=== PATIENT | female | born 1940 | race Caucasian/White ===

== ENCOUNTER 2016-03-23 12:57 | Observation (INO) | payer OTHER ==
[~2016-03-23] VITALS: Ht 160 cm; Wt 86.8 kg
--- NOTE | 2016-03-23 14:10 | DIAGNOSTIC IMAGING REPORT ---
PROCEDURE: XR CHEST 1 VIEW INDICATION: CHEST PAIN TECHNIQUE: Portable AP view 01:52 p.m. COMPARISON: None. FINDINGS: Poor inspiration but lungs are clear. Heart and mediastinum are normal. Thorax is normal. IMPRESSION: 1. Negative chest.
--- NOTE | 2016-03-23 15:07 | ED NURSING NOTES ---
Clinical Report - Nurses [facility] [address] [place] [address] 03/23/2016 13:00 Patient: BHUMI ROLLINS TRIAGE Triage time 13:15. Acuity: LEVEL 2. Chief Complaint: DIZZINESS and (syncopal episode, approx 30 seconds). --13:23 Helen Vázquez R.N. 13:14 03/23/16. BP: 129/74. HR: 77. RR: 18. O2 saturation: 95%. Temp: 97.8 F. Pain level now: 010. --13:23 Helen Vázquez R.N. Weight: 84.8 kg stated. Height/Length: 63 inches Per Patient. BMI: 33.1. --13:14 Ava Sheridan R.N. Medications Celecoxib 200 mg daily. --13:18 Helen Vázquez R.N. Fosinopril 40 mg daily. --13:18 Helen Vázquez R.N. Furosemide 20 mg bid. --13:18 Helen Vázquez R.N. Amlodipine 10 mg daily. --13:18 Helen Vázquez R.N. Atorvastatin 20 mg nightly. --13:18 Helen Vázquez R.N. Verapimil 120 mg daily. --13:18 Helen Vázquez R.N. Flecainide Acetate Oral. --13:18 Helen Vázquez R.N. Ranitidine 300 mg daily. --13:19 Helen Vázquez R.N. Imipramine 20 mg daily. --13:19 Helen Vázquez R.N. Lansoprazole 60 mg daily. --13:19 Helen Vázquez R.N. Cyclobenzaprine 5 mg prn. --13:19 Helen Vázquez R.N. Spironolactone 50 mg daily. --13:19 Helen Vázquez R.N. Gabapentin 300 mg TID. --13:19 Stone, Helen, R.N. Fovent bid prn. --13:19 Helen Vázquez R.N. Aspirin 81 mg daily. --13:19 Helen Vázquez R.N. Vtamin D3 2000 iu daily. --13:20 Helen Vázquez R.N. Magnesium 300 mg daily. --13:20 Helen Vázquez R.N. Gucosamine 1500 mg daily. --13:20 Helen Vázquez R.N. Allergies No Known Drug Allergy. --13:17 Helen Vázquez R.N. History Arrived by private vehicle. Historian: patient. Accompanied by family. This started 1100 AM. Onset. (chest "heaviness"). She has had trouble walking and weakness and experienced syncope. Treatment FIELD ASSOCIATE: None. SOCIAL HX: Never smoker. Alcohol use; consumes one liquor drink. No infectious disease exposure. NUTRITIONAL RISK ASSESSMENT: The nutritional risk assessment revealed no deficiencies. FUNCTIONAL ASSESSMENT: Functional assessment: no impairments noted. LEARNING NEEDS ASSESSMENT: The learning needs assessment revealed no barriers. FALL RISK ASSESSMENT: Fall risk assessment completed. Risk factors identified include postural hypotension and patient age greater than 65 years and history of fall and fainting. Fall interventions initiated. Patient placed on stretcher. Side rails up x2. Brakes on Bed in low position. Patient visible from nurses' station. Call light in reach of patient and family. Instructed not to get up without assistance. SKIN INTEGRITY ASSESSMENT: Skin integrity risk assessment completed. No skin integrity risk identified. --13:23 Helen Vázquez R.N. PROBLEMS: Hypercholesterolemia. Hypertension . --13:20 Helen Vázquez R.N. Interventions ID band on patient. --13:23 Helen Vázquez R.N. PHYSICAL ASSESSMENT 13:17 03/23/16. To room via wheelchair. GENERAL / NEURO / PSYCH: Oriented X 4. Alert. Speech within normal limits. HEENT: No facial asymmetry noted. Pupils equal, round and reactive to light. RESPIRATORY: Breath sounds within normal limits. Respirations not labored. CVS: Normal sinus rhythm noted. Capillary refill less than 2 seconds. GI / : Abdomen soft and nontender. SKIN: Skin is warm and dry. --13:32 Ava Sheridan R.N. NURSING PROGRESS NOTES 13:15 03/23/16. Cardiac rhythm: normal sinus rhythm. The initial plan of care for this patient includes an assessment with efforts to address the presence of pain; impairment of the cardiovascular system. This plan of care was discussed with the patient and family. monitor and storage bin tender, pulse oximeter and NIBP monitor placed on patient; monitoring analyst- Lead II; monitor alarms on. EKG time: (13:Mar 23 2016). EKG was performed by a tech and shown to the ED physician. Patient gowned. Head of bed elevated 45 degrees. Reassurance given. Patient identifiers checked. Call light placed in reach. Side rails up x 2. Bed placed in lowest position. Brakes of bed on. Patient ready for evaluation. --13:31 Ava Sheridan R.N. 13:20 03/23/2016 Site #1 started via IV in the left antecubital space with an 20g angiocath, with aseptic technique and good blood return; one attempt. Blood drawn: rainbow set. Labeled in the presence of the patient and sent to the lab. Saline lock flushed with 10 mL saline. --13:30 Ava Sheridan R.N. 13:43 03/23/16. ( MED LIST REVIEWED WITH PATIENT. SHE STOPPED TAKING AMLODIPINE, AND CELEBREX WITHOUT TELLING HER MD QUITE A FEW MONTHS AGO. FLEXERIL AND FLOVENT ARE PRN TODAY , PT WAS GOING TO GI MD TODAY AND SHE PASSED OUT IN THE FRONT DOOR OF OFFICE. SHE HAS HAD SOME MILD CHEST HEAVINESS SINCE THEN BUT DENIED ANY PRECIPITATING SYMPTOMS. SHE SAID IT HAPPENED VERY FAST. SHE WAS UP WALKING ONE MINUTE AND THEN WOKE ON THE FLOOR.). --13:43 Ava Sheridan R.N. 13:44 03/23/16. ( PT STATES THEY DID ORTHOSTATIC VITALS AND THERE WAS NO FLUCTUATION IN HER HEART RATE OR BLOOD PRESSURE). --13:44 Ava Sheridan R.N. 13:47 03/23/2016 Aspirin PO Tablets 243 mg given. Allergies verified and confirmed 5 rights. --13:47 Ava Sheridan R.N. 13:52 03/23/16. Finger stick glucose: 132; performed by nurse; result shown to the ED physician. --13:52 Ava Sheridan R.N. 13:54 03/23/16. Portable chest x-ray performed and shown to the ED physician. --13:54 Ava Sheridan R.N. ( MD in room to examine patient). --14:13 Ava Sheridan R.N. 15:09 03/23/16. BP: 98/60 (regular adult cuff) taken on the right arm, via an automated monitor, while lying. HR: 69. RR: 17 (regular and normal). --15:11 Nilsa Karin 15:13 03/23/16. BP: 100/68 (regular adult cuff) taken on the right arm, via an automated monitor, while sitting. HR: 75 (regular). RR: 18 (regular and normal). --15:14 Nilsa Karin 15:18 03/23/16. BP: 85/57 (regular adult cuff) taken on the right arm, via an automated monitor, while standing. RN notified. HR: 63 (regular and normal rate). --15:18 Enid Asha 15:59 03/23/16. The patient is resting quietly. GENERAL / NEURO / PSYCH: Patient is calm and cooperative. Alert. Oriented X 4. ( waiting for inpatient bed. no change in condition. voices no complaints). --15:59 Ava Sheridan R.N. DISPOSITION / DISCHARGE 17:25 03/23/2016 Site #[address] upon admission; patent; flushes easily. --17:25 Ava Sheridan R.N. 17:26 03/23/16. Cardiac rhythm: normal sinus rhythm. Condition at departure: improved and stable. The goals identified in the patient's plan of care were met. Disposition: observation in Acute Care. Transported via stretcher. Report was given to a nurse via a phone call. Report included patient's care, treatment, medications, reviewed medication reconcilliation, and condition (including any recent changes or anticipated changes). All questions were answered. (to TAMMI Pringle). Bed obtained and ready (210B). FALL RISK ASSESSMENT: Fall risk assessment completed. No fall risk identified. --17:26 Ava Sheridan R.N. 17:26 03/23/16. BP: 126/68. HR: 83. RR: 16. O2 saturation: 100%. Temp: 98.5 F. Pain level now 0/10. --17:26 Ava Sheridan R.N. Locked/Released at 03/23/2016 17:26 by Ava Sheridan R.N.
--- NOTE | 2016-03-23 15:07 | ED CLINICAL REPORT ---
Clinical Report - Physicians/Mid Levels [facility] [address] [place] [address] 03/23/2016 13:00 Patient: BHUMI ROLLINS Time Seen: 13:41. Arrived- By private vehicle. Historian- patient. HISTORY OF PRESENT ILLNESS The patient has recovered. Chief Complaint: SINGLE SYNCOPAL EPISODE and Chest Disomfort. This occurred today about 3 hours ago. It was gradual in onset and has been waxing/waning. Event was witnessed. At time of event, she was standing. At time of event, she had just stood up (pt had just gotten out of her car to go into her gastroenterologists office when she had the episode; was taken into the clinic and told her BP was low (approx 90 systolic) and her HR was in the 110's). The patient had preceding symptoms of light-headedness. No preceding symptoms of chest pain or abdominal pain. The patient lost consciousness completely (for 30 sec). No seizure activity or incontinence. Had a single episode of syncope (30 sec). The episode was brief and lasted seconds. No injuries noted. She currently has weakness. No nausea currently. No headache currently. (She has been somewhat confused today - "feels slow"). Similar symptoms previously: Recent medical care: The patient was seen recently in a clinic. REVIEW OF SYSTEMS No headache, chest pain, palpitations, abdominal pain or vomiting. No diarrhea, black stools, bloody stools, fever or sore throat. No difficulty with urination, skin rash or cough. The patient has had dizziness and generalized weakness. All systems otherwise negative, except as recorded above. PAST HISTORY See nurses notes. Hypertension. ( PCP: [facility]'s group Gastroenterology: [facility]). History of dysrhythmia. (unsure type). Asthma. Hyperlipidemia. Gastroesophageal reflux. Arthritis. 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 Surgeries: Endoscopy. Medications: Gucosamine 1500 mg daily. Magnesium 300 mg daily. Vtamin D3 2000 iu daily. Aspirin 81 mg daily. Fovent bid prn. Gabapentin 300 mg TID. Spironolactone 50 mg daily. Cyclobenzaprine 5 mg prn. Lansoprazole 60 mg daily. Imipramine 20 mg daily. Ranitidine 300 mg daily. Flecainide Acetate Oral. Verapimil 120 mg daily. Atorvastatin 20 mg nightly. Amlodipine 10 mg daily. Furosemide 20 mg bid. Fosinopril 40 mg daily. Celecoxib 200 mg daily. Allergies: No Known Drug Allergy. SOCIAL HISTORY Never smoker. Occasional alcohol use. No drug use. Is a local resident. ADDITIONAL NOTES The nursing notes have been reviewed. PHYSICAL EXAM Vital Signs: 03/23/2016 13:14 BP: 129/74. HR: 77. RR: 18. O2 saturation: 95%. Temp: 97.8 F. Pain level now: 0/10. Appearance: Alert. Patient in mild distress. Eyes: Pupils equal, round and reactive to light. No nystagmus. Extraocular movements normal. ENT: Normal ENT inspection. Moist mucous membranes. Pharynx normal. Neck: Normal inspection. Neck supple. No meningeal signs or carotid bruit. CVS: Heart sounds normal. Pulses normal. Respiratory: No respiratory distress. Breath sounds normal. Abdomen: Soft and nontender. Back: Normal inspection. Skin: Skin warm and dry. Normal skin color. Normal skin turgor. Extremities: Extremities exhibit normal ROM. No calf tenderness. Neuro: Alert. Oriented X 3. Speech normal. Cranial nerves normal (as tested). No cerebellar findings. No motor deficit. No sensory deficit. Reflexes normal. Reflex exam: right biceps 1+, left biceps 1+, right patellar 1+, left patellar 1+, right Achilles 0 and left Achilles 0. LABS, X-RAYS, AND EKG EKG: EKG time: (13:31). Normal sinus rhythm. Rate: 75. First-degree atrioventricular block. Normal QRS complex. Normal axis. Non-specific ST segment / T wave abnormalities. The study has been interpreted contemporaneously by me. The EKG appears to be a good tracing. Rhythm Strip #1: Normal sinus rhythm. Regular rhythm. Narrow QRS complexes. No ectopy. Laboratory Tests: CBC w Diff: (HOLLY: 03/23/2016 13:20) ( MsgRcvd 03/23/2016 14:10) Final results Test Result Flag Units (Reference) WHITE BLOOD COUNT 11.7 H K/uL (4.5-11.5) RED BLOOD COUNT 4.78 M/uL (4.00-5.20) HEMOGLOBIN 12.6 gm/dL (12.0-16.0) HEMATOCRIT 39.7 % (36.0-46.0) MEAN CELL VOLUME 83 fL (80-100) MEAN CORPUSCULAR HGB 26 pg (26-34) MEAN CORPUSCULAR HGB CONC 32 g/dL (31-37) RED CELL DISTRIBUTION WIDTH 19.6 H % (11.6-14.8) PLATELET COUNT 238 K/uL (150-400) NEUTROPHIL % 77.2 H % (50-75) LYMPH % 13.6 L % (25-40) MONO % 8.0 % (3-14) EOSINOPHIL % 0.9 % (0-4) BASOPHIL % 0.3 % (0-2) PT with INR: (HOLLY: 03/23/2016 13:20) ( MsgRcvd 03/23/2016 14:48) Final results Test Result Flag Units (Reference) INR 0.9 (0.8-1.2) Low Intensity Therapy: INR 1.5-2.0 PT range 18.5-23.1Mod.Intensity Therapy: INR 2.0-3.0 PT range 23.1-31.5High Intensity Therapy: INR 2.5-3.5 PT range 27.4-35.5High Intensity Therapy 2: INR 3.0-4.0 PT range 31.5-39.3 D-DIMER QUANTITATIVE 0.45 ug/mLFEU (0.27-0.52) The primary value of this quantitative assay relates toits negative predictive value (i.e. exclusion) of pulmonaryembolism/deep vein thrombosis/DIC.Elevated levels of d-dimer may also occur with:, age, cancer, inflammation, liver disease,post-op, infection, hematoma, coronary disease, peripheralarteriopathy, bleeding disorders and thrombolytic treatment.Results should be correlated with other clinical andradiological data.Testing Methodology: Latex Immunoassay [id number]: (HOLLY: 03/23/2016 20:00) ( [facility] 03/23/2016 20:16) Final results Test Result Flag Units (Reference) POTASSIUM 5.6 H mmol/L (3.5-5.1) Troponin-I: (HOLLY: 03/23/2016 20:00) ( [facility] 03/23/2016 20:38) Final results Test Result Flag Units (Reference) TROPONIN I <0.05 L ng/mL (0.00-1.5) TROPONIN REFERENCE RANGE:<0.1 NEGATIVE0.1-1.5 INDETERMINANT>1.5 POSITIVE BNP: (HOLLY: 03/23/2016 13:20) ( [facility] 03/23/2016 14:31) Final results Test Result Flag Units (Reference) B-TYPE NATRIURETIC PEPTIDE 27.7 pg/ml (5-100) CHEM 13 PANEL: (HOLLY: 03/23/2016 13:20) ( [facility] 03/23/2016 15:00) Final results Test Result Flag Units (Reference) GLUCOSE 143 H mg/dL (70-110) BUN 41 H mg/dL (7-18) CREATININE 1.5 H mg/dL (0.6-1.3) Estimated GFR 35.79 mL/min Estimated GFR- 43.38 mL/min Note: Persistent reduction over 3 months in eGFR<60 mL/min/1.73 m2 defines CKD. Patients with eGFR values>=60 mL/min/1.73 m2 may also have CKD if evidence ofpersistent proteinuria. Additional information may be foundat www.kidney.org. SODIUM 136 mmol/L (136-145) POTASSIUM 5.9 H mmol/L (3.5-5.1) CHLORIDE 99 mmol/L (98-107) CARBON DIOXIDE 28 mmol/L (21-32) CALCIUM 9.2 mg/dL (8.5-10.1) TOTAL PROTEIN 7.4 g/dL (6.4-8.2) ALBUMIN 3.5 g/dL (3.3-5.0) BILIRUBIN, TOTAL 0.4 mg/dL (0.0-1.0) ALKALINE PHOSPHATASE 100 U/L (46-116) AST (SGOT) 21 U/L (15-37) ALT (SGPT) 32 U/L (12-78) MAGNESIUM 2.3 mg/dL (1.8-2.4) AMYLASE 36 U/L (25-115) CPK 37 U/L (24-260) TROPONIN I <0.05 ng/mL (0.00-1.5) TROPONIN REFERENCE RANGE:<0.1 NEGATIVE0.1-1.5 INDETERMINANT>1.5 POSITIVE THYROID STIMULATING HORMONE 2.648 uIU/mL (0.30-3.74) . Bedside Tests: Glucose: mild hyperglycemia - 132 (performed at bedside). Pulse Oximetry: 03/23/2016 13:14 O2 saturation: 95%. PROGRESS AND PROCEDURES Course of Care: ASA 325 mg PO given. Patient is stable. Physical exam findings are improved. Symptoms better. Pt with syncopal episode and history of dysrhythmia. Pt aill need admission for prolonged monitoring and repeat labs. Discussed case with hospitalist, (Blaze). Reviewed test results. Agreed upon treatment plan. Health care provider will see patient in ED. Patient/family counseled. Old medical records ordered. Transition orders written. Disposition: Observation in Acute Care. Condition: stable and improved. CLINICAL IMPRESSION Syncope of unknown cause. Hyperkalemia History of cardiac dysrhythmia Prerenal azotemia. (Electronically signed by Christiano Rojas DO 03/23/2016 21:32)
--- NOTE | 2016-03-23 15:07 | ED ORDER SUMMARY ---
..... Patient: BHUMI ROLLINS OrderSheet [facility] VisitID: [id number] [place] [address] 76y, F Registration Date/Time: 03/23/2016 ORDER SHEET Weight: 84.8 kg (stated) Allergies: No Known Drug Allergy GENERAL ORDERS: EKG - ER Stat (13:35 03/23/2016 EInderbitzen R.N. per protocol) (13:35 EInderbitzen R.N.) Wire Straightener (Continuous) (13:43 03/23/2016 PHutchinson DO) (13:45 EInderbitzen R.N.) Chest 1V Urgent (13:43 03/23/2016 PHutchinson DO) (Ack 13:47 LTapper) (15:30 EInderbitzen R.N.) UA-Culture if indicated Urgent (13:44 03/23/2016 [facility]) (Ack 13:47 LTapper) Cardiac Panel Stat (13:44 03/23/2016 [facility] (13:45 EInderbitzen R.N.) (Ack 13:47 LTapper) BNP Urgent (13:44 03/23/2016 PHmschinson DO) (13:45 EInderbitzen R.N.) (Ack 13:47 LTapper) D-Dimer Urgent (13:44 03/23/2016 PHutchinson DO) (13:45 EInderbitzen R.N.) (Ack 13:47 LTapper) Amylase Urgent (13:44 03/23/2016 PHmschinson DO) (13:45 EInderbitzen R.N.) (Ack 13:47 LTapper) Urine Drug Screen Urgent (13:44 03/23/2016 PHmschinson DO) (Ack 13:47 LTapper) PT with INR Urgent (13:44 [facility] (13:45 EInderbitzen R.N.) (Ack 13:47 LTapper) TSH Urgent (13:44 03/23/2016 PHmschinson DO) (13:45 EInderbitzen R.N.) (Ack 13:47 LTapper) Pulse oximeter (13:44 03/23/2016 [facility]) (13:45 EInderbitzen R.N.) Vitals - Orthostatic (13:44 03/23/2016 [facility]) (15:18 EInderbitzen R.N.) POC Glucose (13:44 03/23/2016 [facility]) (14:01 EInderbitzen R.N.) Call (Place call to): (Dr Thakur) (15:08 03/23/2016 [facility]) (15:30 EInderbitzen R.N.) MEDICATION ORDERS: Aspirin PO 325 mg (if not yet taken today) (13:43 03/23/2016 [facility]) (13:47 EInderanderszen R.N.) IV FLUIDS: IV Saline Lock (13:44 03/23/2016 [facility]) (13:46 EInderbitzen R.N.) ORDER SHEET NOTES: [Electronically signed by Ava Sheridan R.N. (17:26 03/23/2016)] [Electronically signed by Christiano Rojas DO (21:32 03/23/2016)] [Electronically locked/signed by Ava Sheridan R.N. (17:03/23/2016)]
--- NOTE | 2016-03-23 15:07 | ED ORDER SUMMARY ---
..... Patient: BHUMI ROLLINS OrderSheet [facility] VisitID: [id number] [place] [address] 76y, F Registration Date/Time: 03/23/2016 ORDER SHEET Weight: 84.8 kg (stated) Allergies: No Known Drug Allergy GENERAL ORDERS: EKG - ER Stat (13:35 03/23/2016 EInderbitzen R.N. per protocol) (13:35 EInderbitzen R.N.) Musical Performer (Continuous) (13:43 03/23/2016 PHutchinson DO) (13:45 EInderbitzen R.N.) Chest 1V Urgent (13:43 03/23/2016 PHutchinson DO) (Ack 13:47 LTapper) (15:30 EInderbitzen R.N.) UA-Culture if indicated Urgent (13:44 03/23/2016 [facility] (Ack 13:47 LTapper) Cardiac Panel Stat (13:44 03/23/2016 [facility] (13:45 EInderbitzen R.N.) (Ack 13:47 LTapper) BNP Urgent (13:44 03/23/2016 PHdcchinson DO) (13:45 EInderbitzen R.N.) (Ack 13:47 LTapper) D-Dimer Urgent (13:44 03/23/2016 PHutchinson DO) (13:45 EInderbitzen R.N.) (Ack 13:47 LTapper) Amylase Urgent (13:44 03/23/2016 PHdcchinson DO) (13:45 EInderbitzen R.N.) (Ack 13:47 LTapper) Urine Drug Screen Urgent (13:44 03/23/2016 PHdcchinson DO) (Ack 13:47 LTapper) PT with INR Urgent (13:44 [facility] (13:45 EInderbitzen R.N.) (Ack 13:47 LTapper) TSH Urgent (13:44 03/23/2016 PHdcchinson DO) (13:45 EInderbitzen R.N.) (Ack 13:47 LTapper) Pulse oximeter (13:44 03/23/2016 [facility]) (13:45 EInderbitzen R.N.) Vitals - Orthostatic (13:44 03/23/2016 [facility]) (15:18 EInderbitzen R.N.) POC Glucose (13:44 03/23/2016 [facility]) (14:01 EInderbitzen R.N.) Call (Place call to): (Dr Thakur) (15:08 03/23/2016 [facility]) (15:30 EInderbitzen R.N.) MEDICATION ORDERS: Aspirin PO 325 mg (if not yet taken today) (13:43 03/23/2016 [facility]) (13:47 EInderanderszen R.N.) IV FLUIDS: IV Saline Lock (13:44 03/23/2016 [facility]) (13:46 EInderbitzen R.N.) ORDER SHEET NOTES: [Electronically signed by Ava Sheridan R.N. (17:26 03/23/2016)] [Electronically signed by Christiano Rojas DO (21:32 03/23/2016)] [Electronically locked/signed by Ava Sheridan R.N. (17:03/23/2016)]
--- NOTE | 2016-03-23 15:07 | ED NURSING NOTES ---
Clinical Report - Nurses [facility] [address] [place] [address] 03/23/2016 13:00 Patient: BHUMI ROLLINS TRIAGE Triage time 13:15. Acuity: LEVEL 2. Chief Complaint: DIZZINESS and (syncopal episode, approx 30 seconds). --13:23 Helen Vázquez R.N. 13:14 03/23/16. BP: 129/74. HR: 77. RR: 18. O2 saturation: 95%. Temp: 97.8 F. Pain level now: 010. --13:23 Helen Vázquez R.N. Weight: 84.8 kg stated. Height/Length: 63 inches Per Patient. BMI: 33.1. --13:14 Ava Sheridan R.N. Medications Celecoxib 200 mg daily. --13:18 Helen Vázquez R.N. Fosinopril 40 mg daily. --13:18 Helen Vázquez R.N. Furosemide 20 mg bid. --13:18 Helen Vázquez R.N. Amlodipine 10 mg daily. --13:18 Helen Vázquez R.N. Atorvastatin 20 mg nightly. --13:18 Helen Vázquez R.N. Verapimil 120 mg daily. --13:18 Helen Vázquez R.N. Flecainide Acetate Oral. --13:18 Helen Vázquez R.N. Ranitidine 300 mg daily. --13:19 Helen Vázquez R.N. Imipramine 20 mg daily. --13:19 Helen Vázquez R.N. Lansoprazole 60 mg daily. --13:19 Helen Vázquez R.N. Cyclobenzaprine 5 mg prn. --13:19 Helen Vázquez R.N. Spironolactone 50 mg daily. --13:19 Helen Vázquez R.N. Gabapentin 300 mg TID. --13:19 Stone, Helen, R.N. Fovent bid prn. --13:19 Helen Vázquez R.N. Aspirin 81 mg daily. --13:19 Helen Vázquez R.N. Vtamin D3 2000 iu daily. --13:20 Helen Vázquez R.N. Magnesium 300 mg daily. --13:20 Helen Vázquez R.N. Gucosamine 1500 mg daily. --13:20 Helen Vázquez R.N. Allergies No Known Drug Allergy. --13:17 Helen Vázquez R.N. History Arrived by private vehicle. Historian: patient. Accompanied by family. This started 1100 AM. Onset. (chest "heaviness"). She has had trouble walking and weakness and experienced syncope. Treatment FINANCE BROKER: None. SOCIAL HX: Never smoker. Alcohol use; consumes one liquor drink. No infectious disease exposure. NUTRITIONAL RISK ASSESSMENT: The nutritional risk assessment revealed no deficiencies. FUNCTIONAL ASSESSMENT: Functional assessment: no impairments noted. LEARNING NEEDS ASSESSMENT: The learning needs assessment revealed no barriers. FALL RISK ASSESSMENT: Fall risk assessment completed. Risk factors identified include postural hypotension and patient age greater than 65 years and history of fall and fainting. Fall interventions initiated. Patient placed on stretcher. Side rails up x2. Brakes on Bed in low position. Patient visible from nurses' station. Call light in reach of patient and family. Instructed not to get up without assistance. SKIN INTEGRITY ASSESSMENT: Skin integrity risk assessment completed. No skin integrity risk identified. --13:23 Helen Vázquez R.N. PROBLEMS: Hypercholesterolemia. Hypertension . --13:20 Helen Vázquez R.N. Interventions ID band on patient. --13:23 Helen Vázquez R.N. PHYSICAL ASSESSMENT 13:17 03/23/16. To room via wheelchair. GENERAL / NEURO / PSYCH: Oriented X 4. Alert. Speech within normal limits. HEENT: No facial asymmetry noted. Pupils equal, round and reactive to light. RESPIRATORY: Breath sounds within normal limits. Respirations not labored. CVS: Normal sinus rhythm noted. Capillary refill less than 2 seconds. GI / : Abdomen soft and nontender. SKIN: Skin is warm and dry. --13:32 Ava Sheridan R.N. NURSING PROGRESS NOTES 13:15 03/23/16. Cardiac rhythm: normal sinus rhythm. The initial plan of care for this patient includes an assessment with efforts to address the presence of pain; impairment of the cardiovascular system. This plan of care was discussed with the patient and family. conveyor monitor, pulse oximeter and NIBP monitor placed on patient; conveyor monitor- Lead II; monitor alarms on. EKG time: (13:Mar 23 2016). EKG was performed by a tech and shown to the ED physician. Patient gowned. Head of bed elevated 45 degrees. Reassurance given. Patient identifiers checked. Call light placed in reach. Side rails up x 2. Bed placed in lowest position. Brakes of bed on. Patient ready for evaluation. --13:31 Ava Sheridan R.N. 13:20 03/23/2016 Site #1 started via IV in the left antecubital space with an 20g angiocath, with aseptic technique and good blood return; one attempt. Blood drawn: rainbow set. Labeled in the presence of the patient and sent to the lab. Saline lock flushed with 10 mL saline. --13:30 Ava Sheridan R.N. 13:43 03/23/16. ( MED LIST REVIEWED WITH PATIENT. SHE STOPPED TAKING AMLODIPINE, AND CELEBREX WITHOUT TELLING HER MD QUITE A FEW MONTHS AGO. FLEXERIL AND FLOVENT ARE PRN TODAY , PT WAS GOING TO GI MD TODAY AND SHE PASSED OUT IN THE FRONT DOOR OF OFFICE. SHE HAS HAD SOME MILD CHEST HEAVINESS SINCE THEN BUT DENIED ANY PRECIPITATING SYMPTOMS. SHE SAID IT HAPPENED VERY FAST. SHE WAS UP WALKING ONE MINUTE AND THEN WOKE ON THE FLOOR.). --13:43 Ava Sheridan R.N. 13:44 03/23/16. ( PT STATES THEY DID ORTHOSTATIC VITALS AND THERE WAS NO FLUCTUATION IN HER HEART RATE OR BLOOD PRESSURE). --13:44 Ava Sheridan R.N. 13:47 03/23/2016 Aspirin PO Tablets 243 mg given. Allergies verified and confirmed 5 rights. --13:47 Ava Sheridan R.N. 13:52 03/23/16. Finger stick glucose: 132; performed by nurse; result shown to the ED physician. --13:52 Ava Sheridan R.N. 13:54 03/23/16. Portable chest x-ray performed and shown to the ED physician. --13:54 Ava Sheridan R.N. ( MD in room to examine patient). --14:13 Ava Sheridan R.N. 15:09 03/23/16. BP: 98/60 (regular adult cuff) taken on the right arm, via an automated monitor, while lying. HR: 69. RR: 17 (regular and normal). --15:11 Nilsa Karin 15:13 03/23/16. BP: 100/68 (regular adult cuff) taken on the right arm, via an automated monitor, while sitting. HR: 75 (regular). RR: 18 (regular and normal). --15:14 Nilsa Karin 15:18 03/23/16. BP: 85/57 (regular adult cuff) taken on the right arm, via an automated monitor, while standing. RN notified. HR: 63 (regular and normal rate). --15:18 Enid Asha 15:59 03/23/16. The patient is resting quietly. GENERAL / NEURO / PSYCH: Patient is calm and cooperative. Alert. Oriented X 4. ( waiting for inpatient bed. no change in condition. voices no complaints). --15:59 Ava Sheridan R.N. DISPOSITION / DISCHARGE 17:25 03/23/2016 Site #[address] upon admission; patent; flushes easily. --17:25 Ava Sheridan R.N. 17:26 03/23/16. Cardiac rhythm: normal sinus rhythm. Condition at departure: improved and stable. The goals identified in the patient's plan of care were met. Disposition: observation in Acute Care. Transported via stretcher. Report was given to a nurse via a phone call. Report included patient's care, treatment, medications, reviewed medication reconcilliation, and condition (including any recent changes or anticipated changes). All questions were answered. (to TAMMI Pringle). Bed obtained and ready (210B). FALL RISK ASSESSMENT: Fall risk assessment completed. No fall risk identified. --17:26 Ava Sheridan R.N. 17:26 03/23/16. BP: 126/68. HR: 83. RR: 16. O2 saturation: 100%. Temp: 98.5 F. Pain level now 0/10. --17:26 Ava Sheridan R.N. Locked/Released at 03/23/2016 17:26 by Ava Sheridan R.N.
[2016-03-23 18:19] VITALS: BP 137/62
--- NOTE | 2016-03-23 19:40 | HISTORY AND PHYSICAL ---
ADMITTED: 03/23/2016 HISTORY OF PRESENT ILLNESS: The patient is a 76-year-old female who is admitted because of an acute syncopal episode. 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 She felt dizzy and had some chest heaviness, but she denied having any precipitating symptoms. The patient was found to have a blood pressure that was in the 80s. She was brought to the emergency department where her blood pressure was 98/60 with heart rate of 69, respirations of 17. Repeat blood pressure was 85/57 with a heart rate of 63. She was also noted to have a BUN of 41, a creatinine of 1.5. MEDICAL/SURGICAL HISTORY: Medical history: Pertinent for nutcracker esophagus, hypertension, history of arrhythmias, for which she takes flecainide, history of hyperlipidemia, degenerative arthritis. Past surgeries include a prior endoscopy and a hysterectomy. PRIMARY CARE PHYSICIAN: Dr. Rachel MEDICATIONS: 1. Fosinopril 40 mg daily. 2. Furosemide 20 b.i.d. 3. Atorvastatin 20 mg daily. 4. Verapamil 120 mg daily. 5. Flecainide 20 mg 2 p.o. daily. 6. Ranitidine 300 mg daily. 7. Imipramine 20 mg daily. 8. Lansoprazole 60 mg daily. 9. Spironolactone 50 mg daily. 10. Gabapentin 300 t.i.d. 11. Flovent b.i.d. 12. Aspirin 81 mg daily. 13. Vitamin D3 at 2000 international units daily. 14. Magnesium 300 mg daily. 15. Glucosamine 1500 mg daily. ALLERGIES: 1. NO KNOWN DRUG ALLERGIES. SOCIAL HISTORY: She never smoked. Occasional alcohol use, maybe a whiskey a day. No recreational drug use. She lives with her on [facility]. FAMILY HISTORY: Noncontributory to patient's illness. REVIEW OF SYSTEMS: She denies having any focal weakness or numbness. No blurring of vision. No tinnitus, no vertigo. No slurred speech. She had some mild chest discomfort at the onset of symptoms, but no recurrent chest pains. No diaphoresis, no lightheadedness. She has chronic heartburn symptoms and intermittent pains in the chest area secondary to nutcracker esophagus. She denies having any nausea or vomiting. No diarrhea. No bleeding. No leg edema. PHYSICAL EXAMINATION: GENERAL: Shows a well-developed, fairly nourished female, current blood pressure 127/74, heart rate 77, respirations 18, O2 saturations 95% on room air. Weight is 84.8 kg, height is 63 inches, BMI 33.1. HEENT: She is normocephalic with pink conjunctivae. Anicteric. Moist mucous membranes. NECK: No JVD. No bruits. CHEST: Lungs are clear. No rales, no wheezes, no rhonchi. CARDIOVASCULAR: Regular rate and rhythm. S1, S2 normal. No gallops, no murmurs. ABDOMEN: Soft, nontender, normoactive bowel sounds. No guarding. EXTREMITIES: No edema or cyanosis. BACK: No CVA tenderness. NEUROLOGIC: No lateralizing signs. LAB/IMAGING: Her labs include a hemoglobin of 12.6, hematocrit 39.7, WBC of 11.7 , platelets 238, neutrophils 77.2. BNP is 27.3. Glucose is 143, BUN 41, creatinine 1.5. Sodium is 136, potassium 5.9, chloride 99, CO2 of 28. LFTs are normal. CPK and troponins normal. TSH is 2.648. EKG: Normal sinus rhythm, first-degree atrioventricular block, normal QRS, nonspecific ST-T wave abnormalities. IMPRESSION: 1. Acute syncopal episode, probably secondary to dehydration 2. Acute renal insufficiency 3. Hyperkalemia, probably secondary to spironolactone and TIGRE inhibitors 4. History of nutcracker esophagus PLAN: Admit to observation under telemetry. Will recheck cardiac enzymes to make sure she did not have an acute coronary event. We will hold furosemide and spironolactone. We will hydrate with normal saline. We will give Kayexalate 30 mg p.o. for her hyperkalemia and recheck potassium level 4 hours later. We will resume the rest of her preadmission medications and monitor blood pressure off the diuretics. We will continue proton pump inhibitors as well as we place on subcutaneous Lovenox for DVT prophylaxis. The plan of care discussed with the patient and her . CODE STATUS: FULL CODE.
[2016-03-23] MEDS ORDERED: ASPIRIN ADULT L81 MG PO (19:42)
[2016-03-23] MEDS ORDERED: ATORVASTATIN CA20 MG PO (19:42)
[2016-03-23] MEDS ORDERED: AMLODIPINE BESY1 TA7 PO (19:42)
[2016-03-23] MEDS ORDERED: CELEBREX200 MG PO (19:43)
[2016-03-23] MEDS ORDERED: FLECAINIDE ACET50 MG PO (19:45)
[2016-03-23] MEDS ORDERED: CYCLOBENZAPRINE5 MG PO (19:45)
[2016-03-23] MEDS ORDERED: FOSINOPRIL SODI40 MG PO (19:46)
[2016-03-23] MEDS ORDERED: FUROSEMIDE20 MG PO (19:47)
[2016-03-23] MEDS ORDERED: FLOVENT DISKUS50 MCG (19:47)
[2016-03-23] MEDS ORDERED: GABAPENTIN300 MG PO (19:48)
[2016-03-23] MEDS ORDERED: GLUCOSAMINE1500 COM PO (19:49)
[2016-03-23] MEDS ORDERED: MAGNESIUM400 M1 PO (19:50)
[2016-03-23] MEDS ORDERED: IMIPRAMINE HCL10 MG PO (19:50)
[2016-03-23] MEDS ORDERED: PREVACID30 MG PO (19:50)
[2016-03-23] MEDS ORDERED: ALDACTONE25 MG PO (19:51)
[2016-03-23] MEDS ORDERED: RANITIDINE ACID75 MG PO (19:51)
[2016-03-23] MEDS ORDERED: VERAPAMIL120 MG PO (19:51)
[2016-03-23] MEDS ORDERED: VITAMIN D-32000 UNIT PO (19:52)
--- NOTE | 2016-03-23 21:32 | ED DISCHARGE INSTRUCTIONS ---
Patient: BHUMI ROLLINS General Instructions [facility] VisitID: [id number] [place] [address] 76y, F Registration Date/Time: 03/23/2016 Syncope of unknown cause. Hyperkalemia History of cardiac dysrhythmia Prerenal azotemia. ADDITIONAL INFORMATION Hyperkalemia Hyperkalemia is a condition caused by too much potassium in the blood. Most often this occurs in persons taking potassium supplements, or those with severe kidney disease. Mild hyperkalemia usually causes no symptoms. It is only discovered with a blood test. As the potassium level rises, symptoms may include weakness, heart palpitations (rapid or irregular heartbeats), nausea, vomiting, or diarrhea. Home Care: Follow your doctors advice about any potassium supplements and diuretics (water pills) you may be taking. Additional prescription medicines may also be given to remove excess potassium. Follow Up with your doctor for a repeat blood test within the next7 days, unless told otherwise. Get Prompt Medical Attention if any of the following occur: Weakness, dizziness Irregular heartbeat, extra beats, very fast or very slow heart rate Fainting spell Nausea, vomiting, or diarrhea Chest, arm, shoulder, neck or upper back pain, or shortness of breath Reduced urination You have been given the following additional information: Hyperkalemia (Electronically signed by Christiano Rojas DO 03/23/2016 21:32)
--- NOTE | 2016-03-23 21:32 | ED MED RECONCILIATION SUMMARY ---
Patient: BHUMI ROLLINS Medication Reconciliation Report [facility] VisitID: [id number] [address] [place] [address] 76y, F Registration Date/Time: 03/23/2016 Weight: 84.8 kg Height/Length: 63 in. BMI: 33.1 ALLERGIES: No Known Drug Allergy The patient's Home Medications are listed below: THE FOLLOWING MEDICATIONS NEED TO BE RECONCILED: Amlodipine 10 mg daily Aspirin 81 mg daily Atorvastatin 20 mg nightly Celecoxib 200 mg daily Cyclobenzaprine 5 mg prn Flecainide Acetate Oral Fosinopril 40 mg daily Fovent bid prn Furosemide 20 mg bid Gabapentin 300 mg TID Gucosamine 1500 mg daily Imipramine 20 mg daily Lansoprazole 60 mg daily Magnesium 300 mg daily Ranitidine 300 mg daily Spironolactone 50 mg daily Verapimil 120 mg daily Vtamin D3 2000 iu daily The source(s) of the original Home Medication information: Not obtained. The following Medications were given to the patient in the Emergency Department: Aspirin [PO] PO 243 mg, administered: 03/23/2016 1:47:00 PM The following Medications were prescribed to the patient: None.
--- NOTE | 2016-03-23 21:32 | ED MAR SUMMARY ---
..... Medication Administration Record [facility] [address] [place] [address] Patient: BHUMI ROLLINS Visit ID: [id number] 76y, F Weight: 84.8 kg Height/Length: 63 in BMI: 33.1 ALLERGIES: No Known Drug Allergy Given 13:47 03/23/2016 Ava Sheridan R.N. Medication Administered: ASPIRIN [PO], Dose: 243 mg Tablets PO. Medication Ordered: Aspirin PO 325 mg (if not yet taken today).
--- NOTE | 2016-03-23 21:32 | ED MED RECONCILIATION SUMMARY ---
Patient: BHUMI ROLLINS Medication Reconciliation Report [facility] VisitID: [id number] [address] [place] [address] 76y, F Registration Date/Time: 03/23/2016 Weight: 84.8 kg Height/Length: 63 in. BMI: 33.1 ALLERGIES: No Known Drug Allergy The patient's Home Medications are listed below: THE FOLLOWING MEDICATIONS NEED TO BE RECONCILED: Amlodipine 10 mg daily Aspirin 81 mg daily Atorvastatin 20 mg nightly Celecoxib 200 mg daily Cyclobenzaprine 5 mg prn Flecainide Acetate Oral Fosinopril 40 mg daily Fovent bid prn Furosemide 20 mg bid Gabapentin 300 mg TID Gucosamine 1500 mg daily Imipramine 20 mg daily Lansoprazole 60 mg daily Magnesium 300 mg daily Ranitidine 300 mg daily Spironolactone 50 mg daily Verapimil 120 mg daily Vtamin D3 2000 iu daily The source(s) of the original Home Medication information: Not obtained. The following Medications were given to the patient in the Emergency Department: Aspirin [PO] PO 243 mg, administered: 03/23/2016 1:47:00 PM The following Medications were prescribed to the patient: None.
--- NOTE | 2016-03-23 21:32 | ED MAR SUMMARY ---
..... Medication Administration Record [facility] [address] [place] [address] Patient: BHUMI ROLLINS Visit ID: [id number] 76y, F Weight: 84.8 kg Height/Length: 63 in BMI: 33.1 ALLERGIES: No Known Drug Allergy Given 13:47 03/23/2016 Ava Sheridan R.N. Medication Administered: ASPIRIN [PO], Dose: 243 mg Tablets PO. Medication Ordered: Aspirin PO 325 mg (if not yet taken today).
--- NOTE | 2016-03-23 21:32 | ED DISCHARGE INSTRUCTIONS ---
Patient: BHUMI ROLLINS General Instructions [facility] VisitID: [id number] [place] [address] 76y, F Registration Date/Time: 03/23/2016 Syncope of unknown cause. Hyperkalemia History of cardiac dysrhythmia Prerenal azotemia. ADDITIONAL INFORMATION Hyperkalemia Hyperkalemia is a condition caused by too much potassium in the blood. Most often this occurs in persons taking potassium supplements, or those with severe kidney disease. Mild hyperkalemia usually causes no symptoms. It is only discovered with a blood test. As the potassium level rises, symptoms may include weakness, heart palpitations (rapid or irregular heartbeats), nausea, vomiting, or diarrhea. Home Care: Follow your doctors advice about any potassium supplements and diuretics (water pills) you may be taking. Additional prescription medicines may also be given to remove excess potassium. Follow Up with your doctor for a repeat blood test within the next7 days, unless told otherwise. Get Prompt Medical Attention if any of the following occur: Weakness, dizziness Irregular heartbeat, extra beats, very fast or very slow heart rate Fainting spell Nausea, vomiting, or diarrhea Chest, arm, shoulder, neck or upper back pain, or shortness of breath Reduced urination You have been given the following additional information: Hyperkalemia (Electronically signed by Christiano Rojas DO 03/23/2016 21:32)
[2016-03-24 00:02] VITALS: BP 125/61
[2016-03-24 03:09] VITALS: BP 97/58
[2016-03-24 07:30] VITALS: BP 103/61
--- NOTE | 2016-03-24 09:05 | Provider's Discharge Care Plan ---
Problem, Goal, Plan Problem List 1. Syncope Goals: Improved health/wellness Instructions: Take meds as directed, Increase fluid intake 2. Dehydration Goals: Improved health/wellness Instructions: Take meds as directed, Increase fluid intake. Hold furosemide until seen by your doctor.
--- NOTE | 2016-03-24 09:40 | DISCHARGE SUMMARY ---
ADMIT DATE: 03/23/2016 DISCHARGE DATE: 03/24/2016 ADMITTING DIAGNOSES: 1. Acute syncopal episode secondary to dehydration. 2. Acute renal insufficiency. 3. Hyperkalemia. 4. History of nutcracker esophagus DISCHARGE DIAGNOSES: 1. Acute syncopal episode secondary to dehydration. 2. Acute renal insufficiency. 3. Hyperkalemia. 4. History of nutcracker esophagus BRIEF HISTORY: The patient presented with a syncopal episode associated with some mild chest discomfort, but no recurrent chest pain. She was seen and evaluated in the emergency department and assessed as being syncopal and dehydrated. She was admitted for rule out myocardial infarction and treatment for dehydration. HOSPITAL COURSE: She was treated with IV hydration with good results and resolution of all symptomatology. Potassium came down with hydration. Serial cardiac enzymes and EKGs were unremarkable. She tolerated oral intake well and ambulation well. PHYSICAL EXAMINATION: HEENT: Discharge examination showed HEENT clear. CHEST: Clear. HEART: Regular rate and rhythm without murmur. ABDOMEN: Positive bowel sounds. Soft, nontender, without hepatosplenomegaly or masses. BACK: Straight without CVA tenderness. EXTREMITIES: Without cyanosis, clubbing, or edema. NEUROLOGIC: Intact and symmetric. DISPOSITION: Home. DISCHARGE MEDICATIONS/INSTRUCTIONS: Amlodipine 10 mg p.o. daily. Aspirin 81 mg p.o. daily. Atorvastatin 20 mg p.o. daily. Celebrex 200 mg p.o. daily. Cyclobenzaprine 5 mg p.o. p.r.n. muscle spasm. Flecainide 50 mg p.o. daily. Fosinopril 40 mg p.o. daily. Fluticasone inhaler 2 puffs t.i.d. p.r.n. for breathing. Gabapentin 300 mg p.o. t.i.d. Glucosamine 1500 mg daily. Imipramine 20 mg daily. Lansoprazole 60 mg p.o. daily. Magnesium 300 mg daily. Ranitidine 300 mg daily. Verapamil 120 mg daily. Vitamin D 2000 units daily. Discontinue furosemide. Discontinue spironolactone. Special instructions: Follow up with primary physician in 1-2 weeks. He will assess for possibly restarting some of the water pills, encourage increased fluid intake, but continue low-salt diet.
== END 2016-03-24 10:57 | disposition home or self-care (01) ==
LOC: ED SRH 12:57 → TRANS SRH 15:45 → ACUTE2 SRH 18:19
PROVIDERS: ADMIT Internal Medicine
DX: E86.0 Dehydration (principal); R55 Syncope and collapse; N28.9 Disorder of kidney and ureter, unspecified; E87.5 Hyperkalemia; I10 Essential (primary) hypertension
CPT/HCPCS: 29230; 29242; 29246; 90047; 90074; 90098; 90100; 90616; 91320; 91556; 92530; 92610; 92720; 92750; 93140; 94060; 95059